=== PATIENT | female | born 1995 | race Native Hawaiian/Other Pacific Islander ===

== ENCOUNTER 2022-11-27 19:56 | Outpatient (CLI) | payer OTHER, SELFPAY | END 2022-11-27 19:57 | disposition home or self-care (01) | LOC: AMB 12-16 00:31 | PROVIDERS: PCP Physician Assistant Medical; Visit Provider Family Medicine | DX: R55 Syncope and collapse (principal) | CPT/HCPCS: A0425; A0427 ==

== ENCOUNTER 2023-02-11 15:15 | Outpatient (RCR) | payer OTHER, SELFPAY | END 2023-05-31 09:16 | disposition home or self-care (01) | PROVIDERS: PCP Physician Assistant Medical; Visit Provider Physician Assistant Medical | DX: M25.512 Pain in left shoulder (principal); M25.561 Pain in right knee; M25.461 Effusion, right knee; E88.89 Other specified metabolic disorders; M25.861 Other specified joint disorders, right knee; S06.0X1D Concussion with loss of consciousness of 30 minutes or less, subsequent encounter; R53.1 Weakness; M54.2 Cervicalgia; Z74.09 Other reduced mobility; M62.838 Other muscle spasm; Z51.89 Encounter for other specified aftercare | CPT/HCPCS: 97033; 97110; 97140; 97162 ==

== ENCOUNTER 2023-10-03 18:04 | Emergency (ER) | payer BC, SELFPAY ==
[2023-10-03 18:09] VITALS: BP 119/78; PULSE 80; RESP 20; TEMP 36.6; O2SAT 97; BMI 33.9
--- NOTE | 2023-10-03 18:19 | XR_ITS ---
Patient: [facility] Facility:?[facility] Patient ID:?[id number] Site Patient ID:?[id number]. Site :?1995 Study:?XRay-Chest 2V-10/03/2023 6:33:22 PM Ordering Physician:SAAD Final Report: INDICATION: Chest pain. TECHNIQUE: Chest 2 views. COMPARISON: None. FINDINGS: Cardiovascular and mediastinum: Heart size and vasculature are normal in caliber and appearance. Lungs and pleural spaces: Lungs are clear. No sign of infiltrate or mass. No sign of pleural effusion. No pneumothorax. Bones and soft tissues: No significant findings. IMPRESSION: No acute or significant findings. Dictated by Galo Johnson MD @ 10/03/2023 6:56:27 PM Signed by:?Galo Johnson MD @10/03/2023 6:56:27 PM (Electronic Signature)
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
[2023-10-03 19:24] LABS: D Dimer Quantitative* 0.43 ug/ml (0.00-0.50)
[2023-10-03 19:33] LABS: Troponin, Point-of-Care* 0.01 ng/ml (0.01-0.04)
== END 2023-10-03 19:53 | disposition home or self-care (01) ==
PROVIDERS: Emergency Provider Emergency Medicine; PCP Physician Assistant Medical
DX: R07.89 Other chest pain (principal)
CPT/HCPCS: 36415; 71046; 84484; 85379; 93005; 96372; 99284

== ENCOUNTER 2023-11-09 00:05 | Emergency (ER) | payer BC, SELFPAY ==
[2023-11-09 00:14] VITALS: BP 122/75; PULSE 88; RESP 24; TEMP 37.1; O2SAT 98
--- NOTE | 2023-11-09 00:18 | CT_ITS ---
Patient: BRIANA Kelley [facility] Facility:?[facility] Patient ID:?[id number] Site Patient ID:?[id number]. Site :?1995 Study:?CT-Abdomen/Pelvis with 100cc [id number] contrast-11/09/2023 1:29:12 AM Ordering Physician:joey singh Final Report: INDICATION: Abdominal pain. TECHNIQUE: CT abdomen and pelvis acquired with 100 cc Isovue 370 IV contrast. COMPARISON: None. FINDINGS: Lower chest: Unremarkable. Liver: Unremarkable. Normal in size and attenuation. No suspicious masses. Gallbladder and bile ducts: Unremarkable. No stones or inflammation. No biliary dilatation. Pancreas: Unremarkable. No mass or inflammation. Spleen: Unremarkable. Normal in size. No masses. Adrenal glands: Unremarkable. No nodules. Kidneys: Unremarkable. No suspicious masses, stones, or hydronephrosis. GI tract: Unremarkable. Normal in caliber. No sign of mass or inflammation. Normal appendix. Vasculature: Abdominal aorta is normal in caliber. Mesenteric arteries are patent. Lymph nodes: No lymphadenopathy. Peritoneum/Abdominal Wall: Unremarkable. No free air or significant free fluid. Pelvis: Unremarkable. Bones: Unremarkable for age. IMPRESSION: Unremarkable CT of the abdomen and pelvis. No acute findings or findings to explain the patient`s abdominal pain. Please note that all CT scans at this facility use dose modulation, iterative reconstruction, and/or weight-based dosing when appropriate to reduce radiation dose to as low as reasonably achievable. Dictated by Sekou Lutz MD @ 11/09/2023 1:34:30 AM Signed by:?Sekou Lutz MD @11/09/2023 1:34:30 AM (Electronic Signature)
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
[2023-11-09] MEDS: 0.9 % SODIUM CHLORIDE 1000 ml 1,000 ML IV (00:20)
[2023-11-09 00:45] LABS: Appearance Urine Clear (Clear); Bilirubin Urine Negative (Negative); Blood Urine Negative (Negative); Color Urine Yellow (Yellow); Glucose Urine Negative (Negative); Ketones Urine Negative (Negative); Leukocyte Esterase Urine Negative (Negative); Nitrite Urine Negative (Negative); Protein Urine Negative (Negative); Specific Gravity Urine 1.025 (1.000-1.030); Urobilinogen Urine 0.2 (0.2-1.0)
[2023-11-09 00:47] LABS: Basophils Percent Auto 0.1 % (0.0-3.0); Eosinophils Percent Auto 1.8 % (0.0-7.0); Hematocrit 42.3 % (33.0-51.0); Hemoglobin* 14.3 gm/dL (12.0-16.0); Immature Granulocytes Pct Auto 0.3 %; Lymphocytes Percent Auto 21.5 % (20-44); Mean Corpuscular HGB Conc 34 gm/dL (32-36); Mean Corpuscular Hemoglobin 30 pg (26-34); Mean Corpuscular Volume 88 fL (80-100); Monocytes Percent Auto 6.7 % (0.0-11.0); Neutrophils Percent Auto 69.6 % (42.0-72.0); Platelet Count* 221 K/uL (140-440); RDW Coefficient of Variation % 11.7 % (11.5-15.5); White Blood Count* 11.91 K/uL (4.50-11.00)
[2023-11-09 00:51] LABS: Slide Review Reflex No
[2023-11-09 01:01] LABS: Albumin* 4.3 g/dL (3.3-5.0); Chloride* 105 mmol/L (96-114); Sodium* 137 mmol/L (135-149)
[2023-11-09 01:04] LABS: Alanine Aminotransferase* 30 U/L (4-35); Alkaline Phosphatase* 86 U/L (40-150); Amylase* 64 U/L (18-89); Anion Gap 6 mEq/L (7-15); Aspartate Amino Transferase* 31 U/L (12-35); Bilirubin Total* 0.3 mg/dL (0.1-1.5); Blood Urea Nitrogen* 14 mg/dL (5-24); Carbon Dioxide* 26 mmol/L (20-32); Creatinine* 0.8 mg/dL (0.5-1.5); Estimated Glomerular Filt Rate 102 ml/min; Glucose* 107 mg/dL (60-115); Total Protein* 7.5 g/dL (6.0-8.3)
[2023-11-09 01:05] LABS: Calcium* 9.2 mg/dL (8.4-10.6)
[2023-11-09 01:07] LABS: HCG Qualitative Serum* Negative (Negative)
[2023-11-09 01:36] VITALS: BP 103/62; PULSE 77; RESP 16; O2SAT 98
[2023-11-09 01:37] VITALS: PULSE 76; O2SAT 96
[2023-11-09 01:45] VITALS: PULSE 78; O2SAT 96
[2023-11-09] MEDS: MAGNESIUM CITRATE 300 ML SOLUTION PO (01:46)
== END 2023-11-09 01:50 | disposition home or self-care (01) ==
PROVIDERS: Emergency Provider Internal Medicine; PCP Physician Assistant Medical
DX: K59.00 Constipation, unspecified (principal)
CPT/HCPCS: 36415; 74177; 80053; 81003; 82150; 84703; 85025; 96360; 99283; 99284; 99285; A9270; J7030; Q9967

== ENCOUNTER 2024-05-20 20:43 | Outpatient (CLI) | payer OTHER, BC, SELFPAY ==
--- OUTSIDE RECORDS SUMMARY | 2024-05-20 20:46 | XMS_ITS | Clinical Summary ---
Author Organization [employer] [facility] Address [place], [place] [address] Care Team Providers Care Documentum Consultant Name Role Phone Neela Guajardo Unavailable Neela Guajardo Primary Care Provider Bladimir Zelaya MD Unavailable [phone] Allergies Active Allergy Reactions Criticality Noted Date Comments Amoxicillin-Pot Clavulanate Rash 03/22/20 10 Hair falling out Amoxicillin-Pot Clavulanate *Unknown 06/28/20 18 Medications Medication Sig Dispensed Refills Start Date End Date Status SUMAtriptan (IMITREX) 25 mg tabletIndications:Con cussion with loss of consciousness of 30 minutes or less, subsequent encounter,Chronic post-traumatic headache, not intractable,Work related injury Take 1 Tablet (25 mg) by mouth 2 times daily if needed for Migraine. Give at minimum 2hrs apart. Max Dose: 200mg per 24hrs. 18 Tablet 2 11/21/2023 Active traZODone (DESYREL) 100 mg tabletIndications:Ins omnia due to medical condition TAKE 1 AND 1/2 TABLETS(150 MG) BY MOUTH AT BEDTIME 135 Tablet 1 02/18/2024 Active prazosin (MINIPRESS) 2 mg capsuleIndications:Ni ghtmares associated with chronic post-traumatic stress disorder Take 1 Capsule (2 mg) by mouth at bedtime. Take with 5 mg cap for total dose = 7 mg qhs 90 Capsule 1 02/24/2024 Active prazosin (MINIPRESS) 5 mg capsuleIndications:Ni ghtmare disorder TAKE 1 CAPSULE(5 MG) BY MOUTH AT BEDTIME, take in addition to 2 mg dose for total of 7 mg daily 90 Capsule 02/24/2024 Active sertraline (ZOLOFT) 100 mg tabletIndications:Pos tconcussion syndrome Take 2 Tablets (200 mg) by mouth once daily in the morning. 180 Tablet 1 02/24/2024 Active levonorgestrel-ethiny l estrad, 0.1mg-20mcg, (Vienva) 0.1-20 mg-mcg tabletIndications:Use s contraception Take 1 Tablet by mouth once daily. 84 Tablet 4 03/23/2024 Active Active Problems Problem Noted Date Diagnosed Date Pap smear for cervical cancer screening 03/12/20 23 Overview (04/03/2023): 03/2023 NIL/ HPV negative Plan: Pap/ HPV due 03/2028 Hip pain, left 04/09/2018 Acute pain of left knee 04/09/2018 Urticaria due to cold 11/11/2017 Overview (11/11/2017): Proven in office with ice to skin Rash 10/23/2013 Resolved Problems Problem Noted Date Diagnosed Date Resolved Date Atrial septal defect 11/11/2017 022 Encounters Date Type Department Care Team Description 05/14/2024 Telephone [facility] [address] [place] [address] Micki Solomon MD Call back 05/14/2024 Transcribe Orders [facility] [address] [address] Micki Solomon MD 05/06/2024 8:20 AM CDT Office Visit [facility] [address] [place], [place] [id number] Jessica Nunez, CLINICAL INFORMATICS STRATEGIST Throat Problem (Congestion and headache X 5 days); Derm Problem (Left groin x 5 months) 05/06/2024 Travel 05/05/2024 Telephone [facility] [address] [place] [address] Micki Solomon MD 05/05/2024 Telephone [facility] [address] [facility] [place] [address] Chano Lua MD Questions 04/22/2024 11:10 AM CDT Office Visit [facility] [address] [place] [address] Neela Guajardo PA [facility] (Follow up - has had daily migraines since Apr 14) 04/22/2024 Travel 04/21/2024 10:00 AM CDT Office Visit [facility] [address] [place] [address] Jon Perry MD Sleep Consult 04/20/2024 10:45 AM CDT Office Visit [facility] [address] [place] [address] Chano Lua MD Occ Med (Follow-up WORK COMP DOI: 11/27/2022/LEFT Shoulder ) 04/20/2024 Travel 04/06/2024 9:00 AM CDT Telemedicine [facility] [address] [place] [address] Bladimir Zelaya MD Psychiatry Follow-up (Medication change) 03/23/2024 11:30 AM CDT Office Visit [facility] [address] [place] [address] Neela Guajardo PA Occ Med (Follow up - shoulder if feeling much better) 03/23/2024 Refill [facility] [address] [place] [address] Neela Guajardo PA Refill Request 03/23/2024 Travel 03/09/2024 3:55 PM CDT Office Visit [facility] [address] [place] [address] Chano Lua MD Occ Med (Follow-up Work Comp LEFT Shoulder injury DOI: 11/27/2022); Immunization/Injec tion (Trigger point injection - LEFT Trapezius Muscle) 03/09/2024 Travel 03/04/2024 10:10 AM CDT Office Visit [facility] [address] [place] [address] Maya Oates, DO Exposure To Std (female partner is positive for HPV, activity on 02/16) 03/04/2024 Travel 02/28/2024 Refill [facility] [address] [place] [address] Neela Guajardo PA Refill Request (Prazosin) 02/24/2024 9:50 AM CDT Office Visit [facility] [address] [place] [address] Neela Guajardo PA Occ Med (Follow up- Shoulder pain is improving with PT, still getting some Headaches. 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) 02/24/2024 Travel 02/23/2024 Refill [facility] [address] [address] Bladimir Zelaya MD Refill Request (Prazosin) from Last 3 Months Immunizations Name Administration Dates Next Due COVID-19 vaccine (Moderna 100mcg/0.5mL) PF MDV 09/14/2020,08/17/2020 DTaP 04/03/1999, 7,07/01/1995,02/05,1994 Hepatitis A (Adult) 03/04/2017 Hepatitis A (Peds) 03/10/2013 Hepatitis B (Peds) 02/05/1995,1994, 994 Hib Conjugate, Unspecified 01/06/1997,,02/05/1995,07/03 Human Papilloma Virus Vaccine 03/10/2013, 012,03/22/2010 Influenza Virus, Unspecified 05/12/2018 Influenza, IIV3 (Age >=3 years) 06/12/2012 Influenza, IIV4 05/07/2023,,05/12/2019,05/17,05/13/2017,07/30/2016 MENINGOCOCCAL VACCINE 2 VIAL 2MO-55YO (MENVEO) 03/22/2010 MMR 04/03/1999,01/06/1997 Meningococcal Vaccine (Menactra) 03/10/2013 Polio Virus, Unspecified 04/03/1999,06/13,02/05/1995,07/03 Td (Age >=7 Years) 06/16/2007 Tdap 07/20/2015,03/22/2010 Tuberculin (PPD) 01/09/2011 Family History Medical History Relation Name Comments Unknown Father Diabetes Maternal Aunt Cancer-breast Maternal Grandmother Cancer-breast Mother Hypertension Mother Relation Name Status Comments Brother 1 Alive Brother 2 Alive Brother 3 Alive Father Maternal Aunt Maternal Grandmother Mother Alive Sister 1 Sister 2 Alive Sister 3 Alive Social History Tobacco Use Types Packs/Day Years Used Date Smoking Tobacco: Never Smokeless Tobacco: Never Tobacco Cessation:Counseling Given: Yes Comments:mom smokes in the house and vehicle Alcohol Use Standard Drinks/Week Comments Yes 0 (1 standard drink = 0.6 oz pure alcohol) occassionally 1-2 every 2 weeks PHQ-2 Answer Date Recorded PHQ-2 TOTAL SCORE 2 03/15/2023 Social Connections Answer Date Recorded Frequency of Communication with Friends and Fami ly 0 11/22/2023 Financial Resource Strain Answer Date R ecorded Difficulty of Paying Living Expenses 3 11/22/2023 Difficulty of Paying Living Expenses Not on file 11/22/2023 Food Insecurity Answer Date Recorded Worried About Running Out of Food in the Last Ye ar 1 11/22/2023 Transportation Needs Answer Date Record ed Lack of Transportation (Medical) 1 11/22/2023 Housing Stability Answer Date Recorded Unable to Pay for Housing in the Last Year 1 11/22/2023 Sex and Gender Information Value Date Recorded Sex Assigned at Female 01/22/2021 4:39 AM CDT Gender Identity Female 01/22/2021 4:39 AM CDT Sexual Orientation Lesbian or [place] 01/22/2021 4: 39 AM CDT Travel History Travel Start Travel End [place] 04/27/2024 05/03/2024 Obstetrics History Last Filed Vital Signs Vital Sign Reading Time Taken Comments Blood Pressure 108/66 05/06/2024 8:21 AM CDT Pulse 104 05/06/2024 8:21 AM CDT Temperature 36.9 ??C (98.4 ??F) 05/06/2024 8:21 AM CD T Respiratory Rate 16 11/21/2023 11:31 AM CDT Oxygen Saturation 97% 05/06/2024 8:21 AM CDT Inhaled Oxygen Concentration - - Weight 90.7 kg (200 lb) 05/06/2024 8:21 AM CDT Height 167.6 cm (5' 6) 04/21/2024 10:00 AM CDT Body Mass Index 32.28 04/21/2024 10:00 AM CDT Plan of Treatment Upcoming Encounters Date Type Department Care Team (Late st Contact Info) Description 05/27/2024 11:10 AM CDT Office Visit [facility] [address] [place] [address] Neela Guajardo PA [address] [place] [address] 06/01/2024 9:05 AM CDT Office Visit [facility] [address] [place] [address] Chano Lua MD [address] [place] [address] 06/03/2024 8:00 AM CDT Office Visit [facility] [address] [place] [address] Jon Perry MD [address] [place] [address] 06/23/2024 9:00 AM OFFICE CLERK ASSISTANT Office Visit [facility] [address] [place] [phone] Juan Venegas PsyD, LP [address] [place] [address] 07/01/2024 8:00 AM OFFICE CLERK ASSISTANT Office Visit [facility] [address] [place] [address] Raymundo Mendoza, PhD, [address] [place] [address] 07/21/2024 11:00 AM OFFICE CLERK ASSISTANT Office Visit [facility] [address] [place] [address] Micki Solomon MD [address] [place], [place] [id number] Health Maintenance Due Date Last Done Comments Depression screening for age 12+ 03/18/2024 03/18/2023, 03/15/2023, 03/13/2022, Additional history exists COVID-19 vaccine series ( season) 2024 09/14/2020, 08/17/2020 Influenza for age 9-49 04/12/2024 3, 05/11/2021, 05/12/2019, Additional history exists BMI (ht and wt on same day) for age 18+ 04/21/2025 04/21/2024, 11/21/2023, 03/15/2023, Additional history exists Tetanus booster 07/20/2025 07/20/2015, 03/12, 06/16/2007 Pap test for age 21-65 03/15/2028 3, 03/15/2023, 09/14/2019, Additional history exists Tdap Completed 07/20/2015, 03/22/2010 Hepatitis C screening for age 18-79 Completed 03/15/2023, 08/30/2021, 01/23/2021, Additional history exists HIV for age 15-65 Completed 03/04/2024, , 08/30/2021, Additional history exists Pneumococcal series for age 6-64 Aged Out No longer eligible based on patient's age to complete this topic Procedures Procedure Name Priority Date/Time Associated Diagnosis Comments COVID/FLU/RSV PANEL Routine 05/06/2024 8 :40 AM CDT Sore throat IRON PLUS IRON BINDING CAP Routine 04/21/2024 10:54 AM CDT Restless legs syndrome (RLS) TREPONEMA PALLIDUM Routine 03/04/2024 10 :50 AM CDT Screening examination for STD (sexually transmitted disease) ANTI HIV 1/2 Routine 03/04/2024 10:50 AM CDT Screening examination for STD (sexually transmitted disease) HERPES SIMPLEX VIRUS HSV 1 AND 2 BY NAAT (LESIONS) Routine 03/04/2024 10:43 AM CDT Screening examination for STD (sexually transmitted disease) GC CHLAMYDIA TRACH PROBE Routine 03/04/2024 10:43 AM CDT Screening examination for STD (sexually transmitted disease) LC HCV ANTIBODY RFX TO QUANT PCR Routine 03/15/2023 1:35 PM CDT Screening examination for STD (sexually transmitted disease) ORACLE DEVELOPER THIN PREP PAP SCREEN IMAGED Routine 03/15/2023 1:30 PM CDT Screening for malignant neoplasm of cervix from Last 3 Months or Most Recently Relevant to Health Maintenance Results * COVID/FLU/RSV PANEL (05/06/2024 8:40 AM CDT) INFLUENZA A RNA NOT DETECTED NOT DETECTED [facility] INFLUENZA B RNA NOT DETECTED NOT DETECTED [facility] RSV RNA NOT DETECTED NOT DETECTED [facility] SARS COV2 RNA NOT DETECTED NOT DETECTED [facility] Comment: A Not Detected (negative) test result for this test means that RNA from SARS-CoV-2, influenza A, influenza B and RSV was not present in the specimen above the limit of detection. However, it does not rule out the possibility of infection from SARS-CoV-2, influenza A, influenza B and/or RSV. Laboratory test results should always be considered in the context of clinical observations and epidemiological data in making a final diagnosis and patient management decisions. ? Methodology: Reverse children's tutor nursery polymerase chain reaction (RT-PCR). Swab SPECIMEN FROM NASOPHARYNGEAL STRUCTURE / Unknown 05/06/2024 8:40 AM CDT 05/06/2024 8:44 AM CDT Jessica Nunez NP MICROBIOLOGY Performing Organization Address City/[facility]/ZIP Co de Phone Number [facility] [address] [place] [address], [facility] [address] [place] [address] * IRON PLUS IRON BINDING CAP (04/21/2024 10:54 AM CDT) IRON 118 37 - 145 ug/dL 04/21/2024 6:13 PM CDT [facility] UIBC (UNSATURATED) 254 112 - 347 ug/dL 04/21/2024 6:13 PM CDT [facility] IRON BINDING CAPACITY 372 250 - 400 ug/dL 04/21/2024 6:13 PM CDT [facility] IRON,% SATURATION 32 14 - 50 % 04/21/2024 6:13 PM CDT [facility] Blood BLOOD SPECIMEN / Unknown Venipuncture / Unknown 04/21/2024 10:54 AM CDT 04/21/2024 10:54 AM CDT Jon Perry MD CHEMISTRY [facility] [address] [place] [address], * TREPONEMA PALLIDUM (03/04/2024 10:50 AM CDT) TREPONEMA PALLIDUM Non-Reacti ve Non-Reacti ve 03/04/2024 9:32 PM CDT [facility] Blood BLOOD SPECIMEN / Unknown Venipuncture / Unknown 03/04/2024 10:50 AM CDT 03/04/2024 10:51 AM CDT Maya Marti Oates DO SEND OUTS Performing Organization Address City/[facility]/ZIP Co de Phone Number [facility] [address] [place] [phone], [place] * ANTI HIV 1/2 (03/04/2024 10:50 AM CDT) HIV-1/HIV-2 SCREEN Non-Reacti ve Non-Reacti ve 03/04/2024 9:26 PM CDT [facility] Comment:HIV-1 p24 and HIV-1/ HIV-2 Ab Not Detected. Blood BLOOD SPECIMEN / Unknown Venipuncture / Unknown 03/04/2024 10:50 AM CDT 03/04/2024 10:51 AM CDT MayaAbcellute Lashon DO SEND OUTS Performing Organization Address [facility] Co de Phone Number [facility] [address] [place] [phone], [place] * HERPES SIMPLEX VIRUS HSV 1 AND 2 BY NAAT (LESIONS) (03/04/2024 10:43 AM CDT) HSV 1 Negative Negative 03/06/2024 11:02 AM CDT [facility] HSV 2 Negative Negative 03/06/2024 11:02 AM CDT [facility] Other LESION SPECIMEN / Unknown Non-Blood / Unknown 03/04/2024 10:43 AM CDT 03/04/2024 11:10 AM CDT Narrative [facility] - 03/06/2024 11:02 AM CDT Results from the Aptima HSV 1 & 2 assay should be interpreted in conjunction with other clinical data available to the clinician. A negative Aptima HSV 1 & 2 assay result does not preclude a possible infection because results are dependent on adequate specimen collection. Maya Oates DO MICROBIOLOGY Performing Organization Address City/[facility]/ZIP Co de Phone Number [facility] [address] [place] [address], [place] * GC CHLAMYDIA TRACH PROBE (03/04/2024 10:43 AM CDT) CHLAMYDIA PROBE Negative 8:42 PM CDT [facility] N GONORRHOEAE PROBE Negative 03/04/2024 8:42 PM CDT [facility] Other VAGINAL SWAB / Unknown Non-Blood / Unknown 03/04/2024 10:43 AM CDT 03/04/2024 11:10 AM CDT Maya Oates DO MICROBIOLOGY [facility] [address] [place] [address], * HCV ANTIBODY RFX TO QUANT PCR (03/15/2023 1:35 PM CDT) Pathologist [facility] HCV Ab Non Reactive Non Reactive 03/19/2023 11:06 PM CDT [facility] TEST[facility] (CET) Blood BLOOD SPECIMEN / Unknown Venipuncture / Unknown 03/15/2023 1:35 PM CDT 03/15/2023 1:36 PM CDT Narrative [facility] (CET) - 03/19/2023 11:06 PM CDT Performed at: ??[address] ??[id number] Foaming Machine Operator: Ha Morris MD, Phone: ??[phone] Shawna BROWN LABORATORY [facility] (CET) [address] [place] [id number] * ORACLE DEVELOPER THIN PREP PAP SCREEN IMAGED [[id number]] (03/15/2023 1:30 PM CDT) Pathologist [facility] Case Report Gynecologic Cytology Report ? Case: [id number] ? Authorizing Provider: ??Shawna Sanderson PA ?? Collected: ? 03/15/2023 1330 ? Ordering Location: ? [facility] ?? Received: ?03/15/2023 1349 ? Clinic ? First Screen: ?Riya Rondon ? Specimen: ?ORACLE DEVELOPER ThinPrep Vial Screening, Cervical ? 03/29/2023 12:20 PM CDT [facility] [employer] LABORATORY-C ENTRAL LABORATORY INTERPRETATION/ RESULT NEGATIVE FOR INTRAEPITHELIAL LESION OR MALIGNANCY (NIL) (none) 03/29/2023 12:20 PM CDT [facility] LABOR[facility]- ENTRAL LABORATORY IMEN ADEQUACY Satisfactory for evaluation No endocervical component seen 03/29/2023 12:20 PM CDT [facility] LABORATORY-C ENTRAL LABORATORY HPV REQUEST HPV not requested 2022 12:20 PM CDT [facility] LABORAT[facility]-C ENTRAL LABORATORY Date of LMP 02/16/23 03/29/2023 12:20 PM CDT [facility] ENTRAL LABORATORY Last Pap Date 09/14/19 03/29/2023 12:20 PM CDT [facility] Last Pap Result NIL 12:20 PM CDT [facility] Abnormal Pap or [place] Bx in last 5 years No 03/29/2023 12:20 PM CDT [facility] Menstrual Status Regular Periods 03/29/2023 12:20 PM CDT [facility] [place] Bx Done Today No 03/29/2023 12:20 PM CDT [facility] Additional Information None given 03/29/2023 12:20 PM CDT [facility] Comment: Cytology is screened at [facility] - [address], [place] [address] [address] [facility] - [address] [place] [address] and [facility] - [address] [place] [address] [facility] - [address], [place] [address] Automated Review Successful 03/29/2023 12:20 PM CDT [facility] Comment:Specimen processed s uccessfully by automated ritual circumciser device, ThinPrep Imaging System, [employer] Note The pap test is a screening technique, not a diagnostic procedure. It is used primarily to screen for squamous cancers and precursor lesions. Published studies have shown that it is subject to both false negative and false positive results. The pap test should not be used as the sole means to diagnose or exclude pre-malignant and malignant lesions. 03/29/2023 12:20 PM CDT [facility] Other (Cervical) Non-Blood / Unknown 03/15/2023 1:30 PM CDT 03/15/2023 1:49 PM CDT Shawna BROWN PATHOLOGY/CYTOLOG Y [facility] [address] [place] [address], from Last 3 Months or Most Recently Relevant to Health Maintenance Care Teams Documentum Consultant Relationship Specialty Start Date End Date Neela Guajardo PA [address] [place] [address] PCP - General Physician Revival Clerk 09/14/19 Neela Guajardo PA [address] [place] [address] Family Practice 06/28/18 Bladimir Zelaya MD [address] [place] [address] Psychiatry Psychiatry 04/23/23
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
== END 2024-05-20 20:44 | disposition home or self-care (01) ==
PROVIDERS: PCP Physician Assistant Medical; Visit Provider Internal Medicine
DX: G47.33 Obstructive sleep apnea (adult) (pediatric) (principal)
CPT/HCPCS: 95810

== ENCOUNTER 2024-06-09 10:00 | Outpatient (RCR) | payer OTHER, SELFPAY | END 2024-09-22 10:37 | disposition home or self-care (01) | PROVIDERS: PCP Physician Assistant Medical; Visit Provider Physician Assistant Medical | DX: M50.222 Other cervical disc displacement at C5-C6 level (principal); M50.90 Cervical disc disorder, unspecified, unspecified cervical region; M67.912 Unspecified disorder of synovium and tendon, left shoulder; M54.12 Radiculopathy, cervical region; M25.512 Pain in left shoulder; R51.9 Headache, unspecified; M89.8X1 Other specified disorders of bone, shoulder; M62.838 Other muscle spasm; Y99.0 Civilian activity done for income or pay; Y09 Assault by unspecified means; Z51.89 Encounter for other specified aftercare | CPT/HCPCS: 97012; 97032; 97035; 97110; 97112; 97140; 97162 ==